=== PATIENT | female | born 1990 | race Caucasian/White ===

== ENCOUNTER 2020-06-03 08:12 | Emergency (ER) | payer BC ==
[2020-06-03] MEDS ORDERED: DEXTROSE 5%-LACTATED RINGERS 1,000 ML IV ONE (09:19)
[2020-06-03 09:48] LABS: ABSOLUTE BASOPHILS # (AUTO) 0.1 10^3/uL (0.0-0.2); ABSOLUTE EOSINOPHILS # (AUTO) 0.2 10^3/uL (0.0-0.6); ABSOLUTE LYMPHOCYTES (AUTO) 1.9 10^3/uL (0.5-4.7); ABSOLUTE MONOCYTES (AUTO) 0.4 10^3/uL (0.1-1.4); ABSOLUTE NEUT (AUTO) 3.4 10^3/uL (1.7-8.2); ALBUMIN 4.1 g/dL (3.5-5.0); ALKALINE PHOSPHATASE 81 U/L (38-126); ANION GAP 9 (5-19); ASPARTATE AMINO TRANSFERASE 19 U/L (14-36); BASOPHILS % (AUTO) 1.2 % (0-2); BILIRUBIN,DIRECT 0.3 mg/dL (0.0-0.4); BILIRUBIN,TOTAL 0.7 mg/dL (0.2-1.3); BLOOD UREA NITROGEN 10 mg/dL (7-20); CALCIUM 9.4 mg/dL (8.4-10.2); CARBON DIOXIDE 23 mmol/L (22-30); CHLORIDE 108 mmol/L (98-107); EOSINOPHILS % (AUTO) 3.1 % (0-6); GLUCOSE 124 mg/dL (75-110); HEMATOCRIT 40.6 % (36.0-47.0); HEMOGLOBIN 14.3 g/dL (12.0-15.5); LYMPHOCYTES % (AUTO) 31.8 % (13-45); MEAN CORPUSCULAR HEMOGLOBIN 30.4 pg (27.0-33.4); MEAN CORPUSCULAR HGB CONC 35.2 g/dL (32.0-36.0); MEAN CORPUSCULAR VOLUME 86 fl (80-97); MONOCYTES % (AUTO) 6.2 % (3-13); PLATELET COUNT 222 10^3/uL (150-450); POTASSIUM 4.1 mmol/L (3.6-5.0); RED BLOOD COUNT 4.71 10^6/uL (3.72-5.28); RED CELL DISTRIBUTION WIDTH 12.9 % (11.5-14.0); SEGMENTED NEUTROPHILS % (AUTO) 57.7 % (42-78); TOTAL CELLS COUNTED % (AUTO) 100 %; TOTAL PROTEIN 7.2 g/dL (6.3-8.2); WHITE BLOOD COUNT 5.8 10^3/uL (4.0-10.5)
[2020-06-03 10:07] LABS: APPEARANCE,URINE SLIGHTLY-CLOUDY; BILIRUBIN,URINE NEGATIVE (NEGATIVE); COLOR,URINE YELLOW; GLUCOSE, URINE NEGATIVE (NEGATIVE); KETONES,URINE NEGATIVE (NEGATIVE); LEUKOCYTE ESTERASE,URINE SMALL (NEGATIVE); NITRITE,URINE NEGATIVE (NEGATIVE); PROTEIN,URINE NEGATIVE (NEGATIVE); URINE SPECIFIC GRAVITY 1.015; UROBILINOGEN,URINE NEGATIVE mg/dL (<2.0)
--- NOTE | 2020-06-03 10:25 | RADIOLOGY REPORT (SQ) ---
EXAM DESCRIPTION: U/S ABDOMEN COMPLETE W/DOPPLER IMAGES COMPLETED DATE/TIME: 06/03/2020 10:15 am REASON FOR STUDY: bilateral lower quad pain/pelvis COMPARISON: None. TECHNIQUE: Dynamic and static grayscale images acquired of the abdomen and recorded on PACS. Additio nal selected color Doppler and spectral images recorded. Note: Study does not meet criteria for complete doppler/duplex scan LIMITATIONS: None. FINDINGS: PANCREAS: No masses. Visualized pancreatic duct normal caliber. LIVER: No masses. Hepatic steatosis. LIVER VASCULATURE: Normal directional flow of the main portal vein and hepatic veins. GALLBLADDER: No stones. Normal wall thickness. No pericholecystic fluid. ULTRASOUND-DETECTED MARCOS'S SIGN: Negative. INTRAHEPATIC DUCTS AND COMMON DUCT: CBD and intrahepatic ducts normal caliber. No filling defects. INFERIOR VENA CAVA: Normal flow. AORTA: No aneurysm. RIGHT KIDNEY: Normal size. Normal echogenicity. No solid or suspicious masses. No hydronephros is. No calcifications. LEFT KIDNEY: Normal size. Normal echogenicity. No solid or suspicious masses. No hydronephrosi s. No calcifications. SPLEEN: Normal size. No solid masses. PERITONEAL AND PLEURAL SPACES: No ascites or effusions. OTHER: No other significant finding. IMPRESSION: Hepatic steatosis. No acute findings. TECHNICAL DOCUMENTATION: JOB ID: [id number] 2010 [employer]- All Rights Reserved Reading location - IP/workstation name: [email or web address]
--- NOTE | 2020-06-03 10:26 | RADIOLOGY REPORT (SQ) ---
EXAM DESCRIPTION: U/S OB TRANSVAG W/DOPPLER IMAGES COMPLETED DATE/TIME: 06/03/2020 10:18 am REASON FOR STUDY: bilateral lower quad pain/pelvis COMPARISON: None. TECHNIQUE: Transvaginal static and realtime grayscale images acquired of the pelvis. Additional harrison cted spectral and color Doppler images recorded. All images stored on PACs. CLINICAL AGE: 6 weeks, 0 days [facility] LIMITATIONS: None. FINDINGS: UTERUS: No visualized intrauterine . RIGHT ADNEXA: Normal ovary with normal vascular flow. No adnexal free fluid. No adnexal masses. LEFT ADNEXA: Normal ovary with normal vascular flow. No adnexal free fluid. No adnexal masses. FREE FLUID: None. OTHER: No other significant finding. IMPRESSION: NO VISUALIZED INTRA- OR EXTRAUTERINE . bHCG LEVEL TOO LOW TO EXPECT VISUALIZATION OF . ECTOPIC CANNOT BE EXCLUDED. FOLLOW-UP ULTRASOUND AND SERIAL BHCG LEVELS STRONGLY RECOMMENDED TO ACCURATELY ASSESS STATU S. TECHNICAL DOCUMENTATION: JOB ID: [id number] [employer]- All Rights Reserved Reading location - IP/workstation name: [email or web address]
[2020-06-03] MEDS ORDERED: ACETAMINOPHEN 325 MG TABLET PO ONE (12:08)
[2020-06-03 12:10] VITALS: BP 136/76
--- NOTE | 2020-06-03 12:53 | ER Document Report ---
Entered by LUZ COTTRELL SCRIBE 06/03/20 0836 Acting as scribe for:PARK ROUSSEAU MD ED GI/ - General Chief Complaint: Abdominal Pain Stated Complaint: LOWER ABDOMINAL/BACK PAIN Mode of Arrival: Ambulatory Information source: Patient Notes: This 30 year old A1 female patient presents to the ED today for evaluation of sharp right-sided pelvic pain that radiates to her lower back for the past x1 week. Patient states that she is currently undergoing fertility treatment at [facility] in [place], [place] and that she had an intrauterine insemination on 05/06. She states that x2 weeks after the IUI, she took a home test that was negative and had what she thought was a period a few days later. She reports that she began to have " symptoms" including nausea and tender breasts last week, so she took another home test on 06/01 with positive results. She states that she is concerned that the pain may have something to do with her , so she decided to come to the ED for evaluation. Patient reports a history of kidney stones, but states that this pain feels different. She notes nausea without emesis and constipation for the past x2 days, which is atypical of her. Denies vaginal bleeding, urinary symptoms, or fever. Denies any abdominal surgeries. - Related Data Allergies/Adverse Reactions: No Known Allergies Allergy (Unverified 06/03/20 08:19) Past Medical History - General Information source: Patient - Social History Smoking Status: Never Smoker Cigarette use (# per day): No Chew tobacco use (# tins/day): No Smoking Education Provided: No Frequency of alcohol use: Occasional Drug Abuse: None Lives with: Spouse/Significant other Family History: Reviewed & Not Pertinent Patient has suicidal ideation: No Patient has homicidal ideation: No Renal/ Medical History: Reports: Hx Kidney Stones Musculoskeletal Medical History: Reports Hx Arthritis - knees and back Psychiatric Medical History: Reports: Hx Anxiety, Hx Post Traumatic Stress Disorder Review of Systems - Review of Systems Constitutional: See HPI. denies: Fever EENT: No symptoms reported Cardiovascular: No symptoms reported Respiratory: No symptoms reported Gastrointestinal: See HPI, Abdominal pain, Nausea, Constipation. denies: Vomiting Genitourinary: See HPI. denies: Burning, Dysuria, Frequency, Hematuria, Pain Female Genitourinary: See HPI, . denies: Vaginal bleeding Musculoskeletal: See HPI, Back pain Skin: No symptoms reported Hematologic/Lymphatic: No symptoms reported Neurological/Psychological: No symptoms reported -: Yes All other systems reviewed and negative Physical Exam - Vital signs Vitals: Temp Pulse Resp BP Pulse Ox 98.3 F 80 18 144/76 H 100 06/03/20 08:17 06/03/20 08:17 06/03/20 08:17 06/03/20 08:17 06/03/20 08:17 - General General appearance: Alert In distress: Mild - HEENT Head: Normocephalic, Atraumatic Eyes: Normal Pupils: PERRL - Respiratory Respiratory status: No respiratory distress Chest status: Nontender Breath sounds: Normal Chest palpation: Normal - Cardiovascular Rhythm: Regular Heart sounds: Normal auscultation, S1 appreciated, S2 appreciated Murmur: No Friction rub: No Gallop: None auscultated - Abdominal Inspection: Obese Distension: No distension Bowel sounds: Normal Tenderness: Tender - Bilateral lower quadrant and periumbilical tenderness to palpation, RLQ is worse with deep palpation, Rebound - Rebound appreciated in LLQ that travels from left to right Organomegaly: No organomegaly - Back Back: Normal, Nontender. No: CVA tenderness - Extremities General upper extremity: Normal inspection General lower extremity: Normal inspection. No: Edema - Neurological Neuro grossly intact: Yes Orientation: AAOx4 Alex Coma Scale Eye Opening: Spontaneous [place] Coma Scale Verbal: Oriented Alex Coma Scale Motor: Obeys Commands [place] Coma Scale Total: 15 - Psychological Associated symptoms: Normal affect, Normal mood - Skin Skin Temperature: Warm Skin Moisture: Dry Skin Color: Normal Course - Re-evaluation Re-evalutation: 06/03/20 12:46 Patient lying in bed still complaining of some pain in her lower quadrants. Discussed with patient her results that showed her beta-hCG has almost doubled in the past 2 days she reports 2 days ago on Thursday her beta-hCG quantitative was 32 today's quantitative beta-hCG shows 53. The ultrasound that was done on her abdomen and ultrasound that was done on her pelvis for OB work-up shows no acute process there is no intra or extra uterine can be found with such low beta-hCG numbers that is impossible to determine if there is a pregnan cy in the correct location or ectopic. No other acute findings were noted on the pelvic OB ultrasound. The ultrasound done on her abdomen did not disclose any acute process other than patient has hepatostasis. No other acute process was seen. Patient has a normal laboratory including a normal white blood cell count normal red blood cell count and chemistries all normal as well. Patient does admit that she has been constipated for a couple of days and perhaps her lower quadrant pain is related to constipation. Patient will follow up with her fertility specialist in [place]. Advised patient to consider taking stool softeners and to increase her fluids. Patient advised to take Tylenol if needed for pain. - Vital Signs Vital signs: Temp Pulse Resp BP Pulse Ox 98.0 F 80 16 136/76 H 100 06/03/20 12:10 06/03/20 12:10 06/03/20 12:10 06/03/20 12:10 06/03/20 12:10 06/03/20 12:48 Vital signs stable - Laboratory Result Diagrams: 06/03/20 08:40 06/03/20 08:40 Laboratory results interpreted by me: 06/03/20 06/03/20 08:40 08:40 Chloride 108 H Glucose 124 H Beta HCG, Quant 53.54 H Ur Leukocyte Esterase SMALL H 06/03/20 06/03/20 08:40 08:40 Chloride 108 H Glucose 124 H Beta HCG, Quant 53.54 H Ur Leukocyte Esterase SMALL H Laboratories done she show any acute inflammatory or infectious process. - Diagnostic Test Radiology reviewed: Image reviewed, Reports reviewed Radiology results interpreted by me: 06/03/20 12:16 Abdomen Ultrasound 06/03/20 09:20 IMPRESSION: Hepatic steatosis. No acute findings. Transvaginal US 06/03/20 09:20 IMPRESSION: NO VISUALIZED INTRA- OR EXTRAUTERINE . bHCG LEVEL TOO LOW TO EXPECT VISUALIZATION OF . ECTOPIC CANNOT BE EXCLUDED. FOLLOW-UP ULTRASOUND AND SERIAL BHCG LEVELS STRONGLY RECOMMENDED TO ACCURATELY ASSESS STATUS. 06/03/20 12:49 As discussed above patient has 2 low level of beta-hCG to be able to visualize at this time. Follow-up is necessary. Abdominal ultrasound shows hepatic steatosis no other acute findings. Discharge - Discharge Clinical Impression: First trimester , Constipation, Abdominal pain Condition: Stable Disposition: HOME, SELF-CARE Instructions: Bulk Laxatives Additional Instructions: You have a that has doubled in the past 2 days which is consistent with with normal physiology. Your abdominal pain has not been fully explained based on everything we have done today you have normal white blood cell count and other normal red blood cell count platelet count. And your electrolytes chemistries are all within normal range and the urinalysis also does not show any acute process. We recommend that you do follow-up with your fertilization clinic that you and a patient of in [place]. Recommend you consider bulk laxatives for constipation and Tylenol if needed for pain. I personally performed the services described in the documentation, reviewed and edited the documentation which was dictated to the scribe in my presence, and it accurately records my words and actions.
== END 2020-06-03 12:40 | disposition home or self-care (01) ==
LOC: ER 08:12
DX: O26.91 Pregnancy related conditions, unspecified, first trimester (principal); K59.00 Constipation, unspecified; R10.30 Lower abdominal pain, unspecified; R10.2 Pelvic and perineal pain; Z3A.01 Less than 8 weeks gestation of pregnancy
CPT/HCPCS: 99285; 96365; 96366; 36415; 84702; 83605; 83690; 85025; 80053; 81001; 76817; 76700; 93976; J7121

== ENCOUNTER 2020-07-31 21:55 | Emergency (ER) | payer BC ==
[2020-07-31] MEDS ORDERED: ASPIRIN 325 MG TABLET PO ONE (23:11)
--- NOTE | 2020-07-31 23:13 | ER Document Report ---
ED Medical Screen (RME) - General Chief Complaint: Chest Pain Stated Complaint: LEFT SIDED CHEST AND FLANK PAIN Time Seen by Provider: 07/31/20 23:07 Notes: HPI: 30-year-old obese female presenting to the emergency department complaining of 3 to 4 days of a fairly constant left-sided chest pain with radiation through the back on the left side. There has been varying intensity of the discomfort over the last 3 to 4 days it has been most constant and uncomfortable today. Patient denies discomfort with movement although she states when she lay down in the bed earlier she felt increased pain. No fever no cough. She does report some shortness of breath with this. No prior history of similar discomfort. No trauma. PHYSICAL EXAMINATION: Lung sounds are clear to auscultation regular rate and rhythm. There are nonspecific flattening noted in the inferior and lateral leads on her EKG. She does have some reproducible pain in the left thoracic back. I have greeted and performed a rapid initial assessment of this patient. A comp rehensive ED assessment and evaluation of the patient, analysis of test results and completion of medical decision making process will be conducted by an additional ED providers. Please note that clinical decision making for this patient was made during the 2019 pandemic of novel coronavirus which caused a significant strain on the healthcare system including at this particular facility. Criteria for admission discharge and level of care decisions as well as treatment decisions have necessarily changed - Related Data Allergies/Adverse Reactions: No Known Allergies Allergy (Verified 07/31/20 23:07) Past Medical History Renal/ Medical History: Reports: Hx Kidney Stones Musculoskeltal Medical History: Reports Hx Arthritis - knees and back Psychiatric Medical History: Reports: Hx Anxiety, Hx Post Traumatic Stress Disorder Physical Exam - Vital signs Vitals: Temp Pulse Resp BP Pulse Ox 98.2 F 78 20 139/77 H 98 07/31/20 22:09 07/31/20 22:09 07/31/20 22:09 07/31/20 22:09 07/31/20 22:09 Course - Vital Signs Vital signs: Temp Pulse Resp BP Pulse Ox 98.2 F 78 20 139/77 H 98 07/31/20 22:09 07/31/20 22:09 07/31/20 22:09 07/31/20 22:09 07/31/20 22:09
[2020-07-31 23:48] LABS: ABSOLUTE BASOPHILS # (AUTO) 0.1 10^3/uL (0.0-0.2); ABSOLUTE EOSINOPHILS # (AUTO) 0.2 10^3/uL (0.0-0.6); ABSOLUTE LYMPHOCYTES (AUTO) 2.9 10^3/uL (0.5-4.7); ABSOLUTE MONOCYTES (AUTO) 0.6 10^3/uL (0.1-1.4); ABSOLUTE NEUT (AUTO) 4.2 10^3/uL (1.7-8.2); BASOPHILS % (AUTO) 1.3 % (0-2); EOSINOPHILS % (AUTO) 2.6 % (0-6); HEMATOCRIT 42.4 % (36.0-47.0); HEMOGLOBIN 14.9 g/dL (12.0-15.5); LYMPHOCYTES % (AUTO) 36.2 % (13-45); MEAN CORPUSCULAR HEMOGLOBIN 30.7 pg (27.0-33.4); MEAN CORPUSCULAR VOLUME 88 fl (80-97); MONOCYTES % (AUTO) 7.2 % (3-13); PLATELET COUNT 235 10^3/uL (150-450); RED BLOOD COUNT 4.84 10^6/uL (3.72-5.28); RED CELL DISTRIBUTION WIDTH 12.4 % (11.5-14.0); SEGMENTED NEUTROPHILS % (AUTO) 52.7 % (42-78); TOTAL CELLS COUNTED % (AUTO) 100 %; WHITE BLOOD COUNT 7.9 10^3/uL (4.0-10.5)
--- NOTE | 2020-07-31 23:53 | RADIOLOGY REPORT (SQ) ---
EXAM DESCRIPTION: Site: CHEST 2 VIEWS RP: XR CHEST 2 VIEWS Views: 2 CLINICAL HISTORY: 30 years Female; chest pain; COMPARISON: None. FINDINGS: Lungs: Lungs are clear, with no focal infiltrate, pneumothorax, or pleural effusion. Mediastinum: Mediastinum is within normal limits for this positioning. Bones: Bony structures are unremarkable. IMPRESSION: 1. No acute cardiothoracic abnormality.
[2020-08-01 00:01] LABS: ALKALINE PHOSPHATASE 86 U/L (38-126); ANION GAP 5 (5-19); ASPARTATE AMINO TRANSFERASE 20 U/L (14-36); BILIRUBIN,TOTAL 0.6 mg/dL (0.2-1.3); BLOOD UREA NITROGEN 11 mg/dL (7-20); CALCIUM 9.1 mg/dL (8.4-10.2); CARBON DIOXIDE 25 mmol/L (22-30); CHLORIDE 108 mmol/L (98-107); GLUCOSE 108 mg/dL (75-110); POTASSIUM 4.4 mmol/L (3.6-5.0); TOTAL PROTEIN 7.2 g/dL (6.3-8.2)
--- NOTE | 2020-08-01 02:00 | EKG REPORT ---
SEVERITY:- ABNORMAL ECG - SINUS RHYTHM NONSPECIFIC T ABNORMALITIES, INFERIOR LEADS : Confirmed by: Brigida Merchant MD 01-Aug-2020 01:59:29
[2020-08-01] MEDS ORDERED: ASPIRIN 325 MG TABLET PO ONE (03:30)
[2020-08-01] MEDS ORDERED: IBUPROFEN 600 MG TABLET PO ONE (04:52)
--- NOTE | 2020-08-01 06:07 | ER Document Report ---
ED General - General Chief Complaint: Chest Pain Stated Complaint: LEFT SIDED CHEST AND FLANK PAIN Time Seen by Provider: 07/31/20 23:07 Primary Care Provider: DA GARCIA MD [Primary Care Provider] - Follow up in 1 week JACKIE HUGHES MD [ACTIVE STAFF] - Follow up in 1 week Notes: 30-year-old female with no significant past medical history presents with approximately 2 days of constant diffuse inferior left chest pain/epigastric pain radiating to lateral left back aggravated by eating and taking deep breaths without associated symptoms or prior episodes. Patient says that she was at rest when pain came on gradually and has been constant since. Patient says that whenever she eats the pain is worse about an hour later. Patient has been going through IVF treatments this past year, but has not had any since 2 months ago. Patient denies any hypertension, hyperlipidemia, diabetes, smoking, drug use, cardiac history, lower extremity edema, recent travel/trauma/surgery/immobilization, DVT/PE/hypercoagulability history in self or family, cancer history, trauma, recent viral symptoms, cough, myalgia, malais e, fever - Related Data Allergies/Adverse Reactions: No Known Allergies Allergy (Verified 07/31/20 23:07) Past Medical History - General Information source: Patient, Relative - Social History Smoking Status: Former Smoker Frequency of alcohol use: None Drug Abuse: None Family History: Reviewed & Not Pertinent Renal/ Medical History: Reports: Hx Kidney Stones Musculoskeletal Medical History: Reports Hx Arthritis - knees and back Psychiatric Medical History: Reports: Hx Anxiety, Hx Post Traumatic Stress Disorder Review of Systems - Review of Systems Notes: REVIEW OF SYSTEMS: CONSTITUTIONAL : Denies fever, chills, or sweats. EENT: Denies recent cold/sinus symptoms, denies throat pain CARDIOVASCULAR: + chest pain, -CASIE RESPIRATORY: Denies cough, denies shortness of breath. GASTROINTESTINAL: +abdominal pain, -nausea/vomiting. GENITOURINARY: Denies difficulty urinating, painful urination. MUSCULOSKELETAL: Denies neck pain, back pain. SKIN: Denies rash or skin lesions. HEMATOLOGIC : Denies easy bruising or bleeding. LYMPHATIC: Denies swollen, enlarged glands. NEUROLOGICAL: Denies headache, denies change in gait. PSYCHIATRIC: Denies anxiety or stress or depression. Physical Exam - Vital signs Vitals: Temp Pulse Resp BP Pulse Ox 98.2 F 78 20 139/77 H 98 07/31/20 22:09 07/31/20 22:09 07/31/20 22:09 07/31/20 22:09 07/31/20 22:09 - Notes Notes: PHYSICAL EXAMINATION: GENERAL: Well-appearing, well-nourished and in no acute distress. HEAD: Atraumatic, normocephalic. EYES: Pupils equal round and appropriate constriction, sclera anicteric, conjunctiva are normal. ENT: nares patent, moist mucous membranes. NECK: Normal range of motion, supple without lymphadenopathy LUNGS: Breath sounds clear to auscultation bilaterally and equal. No wheezes rales or rhonchi. HEART: Regular rate and rhythm without murmurs CHEST: Mild tenderness on palpation of left chest diffusely and lateral posterior thoracic left back, normal breast ABDOMEN: Soft, nontender, no guarding, no rebound, no masses, no CVAT EXTREMITIES: Normal range of motion, no pitting or edema. No cyanosis. NEUROLOGICAL: Awake, alert, conversing appropriately, moves all extremities spon taneously. PSYCH: Normal mood, normal affect. SKIN: Warm, Dry, normal turgor, no rashes or lesions noted. Course - Re-evaluation Re-evalutation: 08/01/20 06:23 Patient technically PERC negative however given few months ago had exogenous estrogen I obtained a D-dimer to rule out PE. Patient is still low risk for PE and appropriate for rule out with D-dimer which was negative. Patient with mild epigastric pain may be radiating to diaphragm, but no black stools, bloody stools, vomiting, or anemia. No signs of pancreatitis. No ACS risk factors but given repolarization abnormalities recommended the patient follow-up with cardiology. Patient heart score 1. Possibility of pericarditis but no recent viral triggers no ST elevations on EKG and no elevated troponin suggesting myocarditis and given that pain is more likely secondary to possible ulcer not high enough suspicion to treat at this time, but I recommended that patient follow-up with certified fire investigator. Also gave patient instruction to follow-up with fly maker in case breathing is emanating from left breast and instructed her to discuss this with fly maker for possible breast imaging to be done on an outpatient basis, patient has fly maker. Gave patient and partner extensive return to ED precautions and stressed the importance of follow-up. Patient and partner demonstrated understanding of precautions and were in agreement with discharge plan and denied having any other questions or concerns. - Vital Signs Vital signs: Temp Pulse Resp BP Pulse Ox 98.0 F 79 20 128/77 H 97 08/01/20 01:57 08/01/20 01:57 07/31/20 22:09 08/01/20 01:57 08/01/20 01:57 - Laboratory Results Result Diagrams: 07/31/20 23:35 07/31/20 23:35 Laboratory Results Interpreted: 07/31/20 23:35 Chloride 108 H Critical Laboratory Results Reviewed: No Critical Results - Radiology Results Critical Radiology Results Reviewed: No Critical Results - EKG Interpretation by Me Additional EKG results interpreted by me: 08/01/20 06:27 Sinus rhythm, no significant ST elevations or depressions, nonspecific T wave abnormalities Discharge - Discharge Clinical Impression: Abnormal EKG Chest pain Qualifiers: Chest pain type: unspecified Qualified Code(s): R07.9 - Chest pain, unspecified Disposition: HOME, SELF-CARE Additional Instructions: Chest Pain of Unclear Cause The exact cause of your chest pain isn't clear. Fortunately, there is no evidence of an immediately dangerous medical condition. Further testing may be required to find the source of the pain. Most often, we find that this pain is coming from the chest wall -- the muscles or rib joints in the chest. But chest pain can come from the lung and lung lining, the esophagus, the heart valves or heart lining, and even the stomach or gallbladder. Rest. Eat lightly until the pain is gone. We may prescribe medicine for pain and inflammation. You should call the physician immediately if the pain radiates to the shoulder, jaw or arms; if you start to run a fever or develop a cough; or if you develop shortness of breath, or other new or alarming symptoms. You had some mild EKG abnormalities that you should follow-up with the certified fire investigator about. If at any point you have worsening pain, difficulty breathing, dizziness, weakness, fainting, black stool, bloody stool, or any other worsening or alarming symptoms return to the emergency department immed iately. Follow-up with your primary doctor and certified fire investigator within 1 week. Prescriptions: Famotidine [Pepcid] 20 mg PO QAM PRN #20 tablet PRN Reason: Referrals: DA GARCIA MD [Primary Care Provider] - Follow up in 1 week JACKIE HUGHES MD [ACTIVE STAFF] - Follow up in 1 week
[2020-08-01 06:28] VITALS: BP 118/73
== END 2020-08-01 06:25 | disposition home or self-care (01) ==
LOC: ER 21:55
DX: R07.9 Chest pain, unspecified (principal); R94.31 Abnormal electrocardiogram [ECG] [EKG]; R10.13 Epigastric pain; Z87.891 Personal history of nicotine dependence
CPT/HCPCS: 36415; 71046; 80053; 84484; 84703; 85025; 85379; 93005; 93010; 99285